=== PATIENT | male | born 1995 | race African-American/Black ===

== ENCOUNTER 2018-04-01 19:58 | Emergency (ER) | payer MEDICAID ==
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
[2018-04-01 21:49] LABS: URINE SOURCE CLEAN C
[2018-04-01 21:51] LABS: URINE BILIRUBIN NEGATIVE (NEGATIVE); URINE BLOOD NEGATIVE (NEGATIVE); URINE GLUCOSE (UA) NEGATIVE (NEGATIVE); URINE KETONE NEGATIVE (NEGATIVE); URINE LEUKOCYTE ESTERASE NEGATIVE (NEGATIVE); URINE NITRATE NEGATIVE (NEGATIVE); URINE PH 5.5 (4.6 - 8.0); URINE PROTEIN NEGATIVE (NEGATIVE); URINE UROBILINOGEN 0.2 E.U./dL (0.2 - 1.0)
[2018-04-01 21:53] LABS: URINE CLARITY CLEAR (CLEAR); URINE COLOR YELLOW; URINE MICROSCOPIC INDICATED? YES
[2018-04-01 22:00] LABS: URINE BACTERIA FEW /hpf (NONE SEEN); URINE EPITHELIAL CELLS FEW /lpf (FEW); URINE RBC 0-2 /hpf (0-5)
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
--- NOTE | 2018-04-02 09:18 | Diagnostic Imaging Report ---
Lumbar spine (3 views) HISTORY: Pain, trauma Alignment is normal. Disc spaces are maintained. No acute abnormalities. No fractures. Mild scoliosis of the thoracolumbar spine convexity to the right. This may be positional. IMPRESSION: 1. No acute abnormalities
== END 2018-04-01 22:15 | disposition home or self-care (01) ==
LOC: ER 19:58
DX: S33.5XXA Sprain of ligaments of lumbar spine, initial encounter (principal); S63.501A Unspecified sprain of right wrist, initial encounter; V89.9XXA Person injured in unspecified vehicle accident, initial encounter; Y93.89 Activity, other specified; Y92.89 Other specified places as the place of occurrence of the external cause; Y99.8 Other external cause status
CPT/HCPCS: 99285; 96372; 72100; 73130; 81001; J1885